=== PATIENT | male | born 1940 | race Caucasian/White ===

== ENCOUNTER 2017-04-02 12:24 | Observation (INO) | payer OTHER, MEDICARE ==
[2017-04-02 12:38] VITALS: BMI 27.3
[2017-04-02 14:17] LABS: BASO % 0.4 % (0-2.0); EOS % 4.5 % (0-4.5); HEMATOCRIT 42.2 % (35.4-49); HEMOGLOBIN 13.9 GM/dL (11.7-16.9); LYMPH % 23.6 % (8-40); MCH 30.7 pg (25.7-33.7); MEAN CELL VOLUME 92.9 fl (80-96); MEAN PLT VOLUME 9.5 fl (7.5-11.1); NEUT % 59.5 % (42.8-82.8); PLATELET COUNT 200 K/MM3 (134-434); RBC 4.54 M/mm3 (4.00-5.60); RDW 13.9 % (11.9-15.9)
[2017-04-02 14:35] LABS: INR 1.11 (0.82-1.09); PROTHROMBIN TIME (PATIENT) 12.5 SEC (9.98-11.88)
[2017-04-02 14:38] LABS: CHLORIDE 104 mmol/L (98-107); SODIUM 140 mmol/L (136-145)
[2017-04-02 14:43] LABS: ALBUMIN 3.5 g/dl (3.4-5.0); ANION GAP 8 (8-16); BLOOD UREA NITROGEN 16 mg/dL (7-18); CALCIUM 8.9 mg/dL (8.5-10.1); CO2 28 mmol/L (21-32); GLUCOSE,RANDOM 90 mg/dL (74-106); SGOT/AST 31 U/L (15-37); SGPT/ALT 39 U/L (12-78)
[2017-04-02 14:48] LABS: ALK PHOS 85 U/L (45-117); BILIRUBIN,TOTAL 0.5 mg/dL (0.2-1.0); CREATININE 0.9 mg/dL (0.7-1.3); N-TERMINAL BNP 47.59 pg/ml (5-125); TOT PROT 6.6 g/dl (6.4-8.2)
[2017-04-02 14:51] LABS: LIPASE 221 U/L (73-393)
[2017-04-02 14:52] LABS: MAGNESIUM 2.1 mg/dL (1.8-2.4)
--- NOTE | 2017-04-02 14:59 | PDOC ---
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 He reports that these symptoms started when he was doing some light exercising today. He describes his symptoms as intermittent in nature. He reports that his chest pain is a pressure like feeling, without radiation or modifying factors, present at rest at times. He describes his headache as a fullness sensation ranging from mild to moderate, without radiation or modifying factors. The patient denies shortness of breath and dizziness. Denies fever, chills, nausea, vomit, diarrhea and constipation. Allergies: None Past surgical history: Knee surgery (01/2017) Social history: No alcohol, tobacco or drug use reported Past History - Past Medical History Allergies/Adverse Reactions: Allergies Allergy/AdvReac Type Severity Reaction Status Date / Time No Known Allergies Allergy Verified 04/02/17 12:38 Home Medications: Ambulatory Orders Aspirin [ASA -] 81 mg PO DAILY 04/02/17 Fluoxetine HCl [Prozac -] 60 mg PO DAILY 04/02/17 Rosuvastatin [Crestor -] 0 mg PO HS 04/02/17 Cardiac Disorders: Yes (irregular heartbeat) COPD: No - Suicide/Smoking/Psychosocial Hx Smoking History: Never smoked Review of Systems - Review of Systems Comments:: 04/02/17 17:11 GENERAL/CONSTITUTIONAL: No fever or chills. No weakness. HEAD, EYES, EARS, NOSE AND THROAT: No change in vision. No ear pain or discharge. No sore throat.- CARDIOVASCULAR: (+) Chest pain. No shortness of breath RESPIRATORY: No cough, wheezing, or hemoptysis. GASTROINTESTINAL: No nausea, vomiting, diarrhea or constipation. GENITOURINARY: No dysuria, frequency, or change in urination. MUSCULOSKELETAL: No joint or muscle swelling or pain. No neck or back pain. SKIN: No rash NEUROLOGIC: (+) Headache. No vertigo, loss of consciousness, or change in strength/sensation. ENDOCRINE: No increased thirst. No abnormal weight change HEMATOLOGIC/LYMPHATIC: No anemia, easy bleeding, or history of blood clots. ALLERGIC/IMMUNOLOGIC: No hives or skin allergy. *Physical Exam - Vital Signs Last Vital Signs Temp Pulse Resp BP Pulse Ox 98.4 F 74 18 122/86 100 04/02/17 12:35 04/02/17 12:35 04/02/17 12:35 04/02/17 12:35 04/02/17 12:35 - Physical Exam Comments: 04/02/17 17:11 GENERAL: Awake, alert, and fully oriented, in no acute distress HEAD: No signs of trauma, normocephalic, atraumatic EYES: PERRLA, EOMI, sclera anicteric, conjunctiva clear ENT: Auricles normal inspection, hearing grossly normal, nares patent, oropharynx clear without exudates. Moist mucosa NECK: Normal ROM, supple, no lymphadenopathy, JVD, or masses LUNGS: No distress, speaks full sentences, clear to auscultation bilaterally HEART: Regular rate and rhythm, normal S1 and S2, no murmurs, rubs or gallops, peripheral pulses normal and equal bilaterally. ABDOMEN: Soft, nontender, normoactive bowel sounds. No guarding, no rebound. No masses EXTREMITIES : RLE calf non pitting edema. Normal range of motion, no edema. No clubbing or cyanosis. 2+ peripheral pulses x4 NEUROLOGICAL: Cranial nerves II through XII grossly intact. Normal speech, normal gait, no focal sensorimotor deficits SKIN: Warm, Dry, normal turgor, no rashes or lesions noted. B/l medial TKR scars clean/dry/intact Heart Score/ECG Review - History History: Highly suspicious - Electrocardiogram EKG: Non specific repolarization disturbance - Age Age: >/= 65 - Risk Factors Risk Factors Heart Score: Yes Hx Hypercholesterolemia Based on the list above the patient has:: 1-2 risk factors - Troponin Troponin: </= normal limit - Score Heart Score - Total: 6 #1 04/02/17 17:11 Twelve-lead EKG was performed and reviewed by me. A sinus rhythm, rate 70. Normal axis and intervals. No ST elevations or T-wave inversions. ED Treatment Course - LABORATORY CBC & Chemistry Diagram: 04/02/17 14:10 04/02/17 14:10 - ADDITIONAL ORDERS Additional order review: Laboratory Results 04/02/17 04/02/1718 14:10 14:10 14:10 Sodium 140 Cancelled Potassium 4.0 Cancelled Chloride 104 Cancelled Carbon Dioxide 28 Cancelled Anion Gap 8 Cancelled BUN 16 Cancelled Creatinine 0.9 Cancelled Creat Clearance w eGFR > 60 Cancelled Random Glucose 90 Cancelled Calcium 8.9 Cancelled Magnesium 2.1 Total Bilirubin 0.5 Cancelled AST 31 Cancelled ALT 39 Cancelled Alkaline Phosphatase 85 Cancelled Troponin I < 0.02 B-Natriuretic Peptide 47.59 Total Protein 6.6 Cancelled Albumin 3.5 Cancelled Lipase 221 04/02/17 14:10 RBC 4.54 MCV 92.9 MCHC 33.0 RDW 13.9 MPV 9.5 Neutrophils % 59.5 Lymphocytes % 23.6 Monocytes % 12.0 H Eosinophils % 4.5 Basophils % 0.4 - RADIOLOGY Radiology Studies Ordered: Category Date Time Status HEAD CT WITHOUT CONTRAST [CT] Stat CT Scan 04/02/17 13:54 Completed CHEST X-RAY PORTABLE* [RAD] Stat Radiology 04/02/17 13:54 Taken Medical Decision Making - Medical Decision Making 04/02/17 18:01 76-year-old male with a history of nonobstructive CAD, hyperlipidemia who presents to the emergency department with sensation of fullness in his chest and head. Vitals are unremarkable. Exam is unremarkable. EKG is nonischemic. Patient also with recent revision of his total knee replacement last month. Differential includes but is not limited to pulmonary embolism versus acute coronary syndrome versus musculoskeletal pain. Labs were remarkable for a negative troponin and a elevated d-dimer to 2500. As such a CTA has been ordered to evaluate for pulmonary embolism. A CT head was obtained given the had fullness which was negative for acute pathology. Chest x-ray is also negative. Once CTA chest has been done and resulted, patient can be admitted. Patient has been signed out to the evening attending Dr. Cali for further management and disposition. *DC/Admit/Observation/Transfer Diagnosis at time of Disposition: Chest pressure - Discharge Dispostion Condition at time of disposition: Stable - Referrals Referrals: ON STAFF,NOT [Primary Care Provider] - - Patient Instructions - Post Discharge Activity - Attestations Physician Attestion: 04/02/17 18:05 I, Dr. Tena Elder MD, attest that this document has been prepared under my direction and personally reviewed by me in its entirety. I further attest, that it accurately reflects all work, treatment, procedures and medical decision -making performed by me.
[2017-04-02 22:27] VITALS: TEMP 98.1
--- NOTE | 2017-04-02 23:56 | PDOC ---
*Physical Exam - Vital Signs Last Vital Signs Temp Pulse Resp BP Pulse Ox 98.1 F 66 16 131/71 96 04/02/17 22:26 04/02/17 22:26 04/02/17 22:26 04/02/17 22:26 04/02/17 22:26 ED Treatment Course - LABORATORY CBC & Chemistry Diagram: 04/02/17 14:10 04/02/17 14:10 - ADDITIONAL ORDERS Additional order review: Laboratory Results 04/02/17 04/02/17 04/02/17 14:10 14:10 14:10 PT with INR 12.50 H INR 1.11 PTT (Actin FS) D-Dimer 2478 H Sodium Potassium Chloride Carbon Dioxide Anion Gap BUN Creatinine Creat Clearance w eGFR Random Glucose Calcium Magnesium 2.1 Total Bilirubin AST ALT Alkaline Phosphatase Troponin I < 0.02 B-Natriuretic Peptide Total Protein Albumin Lipase 221 04/02/17 04/02/17 04/02/17 14:10 14:10 14:10 PT with INR INR PTT (Actin FS) 33.6 D-Dimer Sodium 140 Cancelled Potassium 4.0 Cancelled Chloride 104 Cancelled Carbon Dioxide 28 Cancelled Anion Gap 8 Cancelled BUN 16 Cancelled Creatinine 0.9 Cancelled Creat Clearance w eGFR > 60 Cancelled Random Glucose 90 Cancelled Calcium 8.9 Cancelled Magnesium Total Bilirubin 0.5 Cancelled AST 31 Cancelled ALT 39 Cancelled Alkaline Phosphatase 85 Cancelled Troponin I B-Natriuretic Peptide 47.59 Total Protein 6.6 Cancelled Albumin 3.5 Cancelled Lipase 04/02/17 14:10 RBC 4.54 MCV 92.9 MCHC 33.0 RDW 13.9 MPV 9.5 Neutrophils % 59.5 Lymphocytes % 23.6 Monocytes % 12.0 H Eosinophils % 4.5 Basophils % 0.4 Medical Decision Making - Medical Decision Making 04/02/17 23:55 History of the chest showed minimal scarring in the lungs. No evidence of PE or aortic dissection. No acute infiltrates, no pleural effusions and no pneumothorax *DC/Admit/Observation/Transfer Diagnosis at time of Disposition: Chest pressure - Discharge Dispostion Condition at time of disposition: Stable Admit: Yes - Referrals Referrals: ON STAFF,NOT [Primary Care Provider] - - Patient Instructions - Post Discharge Activity
--- NOTE | 2017-04-03 00:07 | PN ---
Teaching Attending Note Name of Resident: Madyson Canchola ATTENDING PHYSICIAN STATEMENT I saw and evaluated the patient. I reviewed the resident's note and discussed the case with the resident. I agree with the resident's findings and plan as documented. SUBJECTIVE: 76 M with pmhx. of HLD, Non-obstructive CAD, ?Irregular Heart Rythem, who presents with chest "fullness". States he was doing light excercise when he felt a head and chest fullness. Also states he was lifiting weights and had left chest soreness. States pain Alleviated when he came to ED. No chest pressure or tightness. No diaphoresis. OBJECTIVE: Physical: VS: Vital Signs Period Temp Pulse Resp BP Sys/Arnold Pulse Ox Last 24 Hr 98.1 F-98.4 F 66-80 14-18 122-144/71-88 96-100 GEN: NAD, Resting in bed, AA0X3 HEENT: NCAT, PERRL, throat without erythema or exudates CARD: RRR S1, S2 RESP: CTAB ABD: Bsx4, NTD to palpation EXT: L knee scar. R leg without erythema or edema CBCD WBC 5.0 K/mm3 (4.0-10.0) 04/02/17 14:10 RBC 4.54 M/mm3 (4.00-5.60) 04/02/17 14:10 Hgb 13.9 GM/dL (11.7-16.9) 04/02/17 14:10 Hct 42.2 % (35.4-49) 04/02/17 14:10 MCV 92.9 fl (80-96) 04/02/17 14:10 MCHC 33.0 g/dl (32.0-35.9) 04/02/17 14:10 RDW 13.9 % (11.9-15.9) 04/02/17 14:10 Plt Count 200 K/MM3 (134-434) 04/02/17 14:10 MPV 9.5 fl (7.5-11.1) 04/02/17 14:10 CMP Sodium 140 mmol/L (136-145) 04/02/17 14:10 Potassium 4.0 mmol/L (3.5-5.1) 04/02/17 14:10 Chloride 104 mmol/L (98-107) 04/02/17 14:10 Carbon Dioxide 28 mmol/L (21-32) 04/02/17 14:10 Anion Gap 8 (8-16) 04/02/17 14:10 BUN 16 mg/dL (7-18) 04/02/17 14:10 Creatinine 0.9 mg/dL (0.7-1.3) 04/02/17 14:10 Creat Clearance w eGFR > 60 (>60) 04/02/17 14:10 Random Glucose 90 mg/dL (74-106) 04/02/17 14:10 Calcium 8.9 mg/dL (8.5-10.1) 04/02/17 14:10 Total Bilirubin 0.5 mg/dL (0.2-1.0) 04/02/17 14:10 AST 31 U/L (15-37) 04/02/17 14:10 ALT 39 U/L (12-78) 04/02/17 14:10 Alkaline Phosphatase 85 U/L (45-117) 04/02/17 14:10 Total Protein 6.6 g/dl (6.4-8.2) 04/02/17 14:10 Albumin 3.5 g/dl (3.4-5.0) 04/02/17 14:10 CARDIAC ENZYMES Troponin I < 0.02 ng/ml (0.00-0.05) 04/02/17 14:10 EKG: NSR, NO ST-E changes CTA: Negative Home Medications Medication Instructions Recorded Aspirin [ASA -] 81 mg PO DAILY 04/02/17 Fluoxetine HCl [Prozac -] 60 mg PO DAILY 04/02/17 Rosuvastatin [Crestor -] 0 mg PO HS 04/02/17 ASSESSMENT AND PLAN: 76 M with pmhx. of HLD, Non-obstructive CAD, ?Irregular Heart Rythem, who presents with chest "fullness", being admitted for ACS rule out 1.) Chest Pain - RO ACS - HEART SCORE 5 - ECHO - Trend trop/ekg - ASA/Statin - 02- Cardio - Morphine/Nitro prn pain - Lipid Panel/A1C 2.) DVT Ppx - Low Risk - SCDS Place in Obs-Tele
--- NOTE | 2017-04-03 01:26 | HP ---
CHIEF COMPLAINT: chest "fullness" PCP: HISTORY OF PRESENT ILLNESS: 76 y/o M with PMH HLD, irregular heart beat (dx 10 yrs ago; at time, saw filter filler, was told had WNL ECHO and stress test), cath 20 yrs ago for non- obstructive CAD (<10% blockage), who presents to the ED with chest fullness and headache for the past 6-7 hours. As per patient, while he was lifting with 2 lb leg weights this AM, he developed sudden chest fullness that was constant in his mid-sternal area. The pressure was worse on exertion, and was a/w pulse irregularity and "skipped beats." Pt's chest pressure was not a/w SOB, chest pain, diaphoresis, or N/V. At this time, pt also endorsed head "fullness" and intermittent L sided chest pain that was reproducible with movement. 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, with manual labor Smoking:denies Alcohol: socially Drugs: denies Family History: father- [place] , brother- intestinal dz (unable to describe) Allergies No Known Allergies Allergy (Verified 04/02/17 12:38) HOME MEDICATIONS: Home Medications Medication Instructions Recorded Aspirin [ASA -] 81 mg PO DAILY 04/02/17 Fluoxetine HCl [Prozac -] 60 mg PO DAILY 04/02/17 Rosuvastatin [Crestor -] 5 mg PO HS 04/02/17 REVIEW OF SYSTEMS CONSTITUTIONAL: Absent: fever, chills, diaphoresis, generalized weakness, malaise, loss of appetite, weight change HEENT: Absent: rhinorrhea, nasal congestion, throat pain, throat swelling, difficulty swallowing, mouth swelling, ear pain, eye pain, visual changes CARDIOVASCULAR: +chest pressure, irregular heart rate Absent: chest pain, syncope, palpitations, lightheadedness, peripheral edema RESPIRATORY: Absent: cough, shortness of breath, dyspnea with exertion, orthopnea, wheezing, stridor, hemoptysis GASTROINTESTINAL: Absent: abdominal pain, abdominal distension, nausea, vomiting, diarrhea, constipation, melena, hematochezia GENITOURINARY: Absent: dysuria, frequency, urgency, hesitancy, hematuria, flank pain, genital pain MUSCULOSKELETAL: Absent: myalgia, arthralgia, joint swelling, back pain, neck pain SKIN: Absent: rash, itching, pallor HEMATOLOGIC/IMMUNOLOGIC: Absent: easy bleeding, easy bruising, lymphadenopathy, frequent infections ENDOCRINE: Absent: unexplained weight gain, unexplained weight loss, heat intolerance, cold intolerance NEUROLOGIC: Absent: headache, focal weakness or paresthesias, dizziness, unsteady gait, seizure, mental status changes, bladder or bowel incontinence PSYCHIATRIC: Absent: anxiety, depression, suicidal or homicidal ideation, hallucinations. PHYSICAL EXAMINATION Vital Signs 04/02/17 12:35 Temperature 98.4 F Pulse Rate 74 Pulse Rate [ Apical] Respiratory 18 Rate Blood Pressure 122/86 Blood Pressure [Left Arm] O2 Sat by Pulse 100 Oximetry (%) GENERAL: Pleasant. Resting comfortably in bed, awake, alert, and fully oriented , in no acute distress. HEAD: Normal with no signs of trauma. EYES: Pupils equal, round and reactive to light, extraocular movements intact, sclera anicteric, conjunctiva clear. EARS, NOSE, THROAT: Ears normal, nares patent, oropharynx clear without exudates. Moist mucous membranes. NECK: Normal range of motion, supple LUNGS: Breath sounds equal, clear to auscultation bilaterally. No wheezes, and no crackles. No accessory muscle use. HEART: Regular rate and rhythm, normal S1 and S2 without murmur, or rub. +gallop ABDOMEN: Soft, nontender, not distended, normoactive bowel sounds, no guarding, no rebound, no masses. LOWER EXTREMITIES: 2+ posterior tibial pulses, warm, well-perfused. No calf tenderness. No peripheral edema. NEUROLOGICAL: Cranial nerves II-XII intact. Laboratory Results 04/02/17 04/02/17 04/02/17 14:10 14:10 14:10 WBC 5.0 Hgb 13.9 Hct 42.2 Plt Count 200 D-Dimer 2478 H CXR: WNL Head CT: no intracranial pathology present CTA: WNL EKG: normal sinus rhythm, HR 70 ASSESSMENT/PLAN: 76 y/o M with PMH HLD, irregular heart beat (dx 10 yrs ago; at time, saw filter filler, was told had WNL ECHO and stress test), cath 20 yrs ago for non- obstructive CAD (<10% blockage), who presents to the ED with chest fullness and headache for the past 6-7 hours. Pt admitted to tele obs to r/o ACS. #Chest pressure R/o ACS -trend troponins x 3 (first one is negative) -F/u ECHO -F/u A1c, lipid panel -EKG as needed -Telemetry monitoring -Morphine, nitro for pain PRN -Continue aspirin 81mg, crestor 5mg PO qHS #Elevated d-dimer, r/o PE -D-dimer 2478, however most likely 2/2 recent knee surgery in January -CTA - WNL -Well's score : 0, low risk #HLD -Continue crestor 5mg PO qHS #PPX DVT: SCD's #F/E/N No need for fluids at this time Monitor electrolytes Cholesterol/fat controlled diet #Dispo Tele obs Visit type - Emergency Visit Emergency Visit: Yes Care time: The patient presented to the Emergency Department on the above date and was hospitalized for further evaluation of their emergent condition. - New Patient This patient is new to me today: Yes Date on this admission: 04/03/17 - Critical Care Critical Care patient: No
[2017-04-03 08:07] LABS: BASO % 0.6 % (0-2.0); HEMATOCRIT 41.7 % (35.4-49); HEMOGLOBIN 13.8 GM/dL (11.7-16.9); MCH 30.9 pg (25.7-33.7); MEAN CELL VOLUME 93.6 fl (80-96); MONO % 12.6 % (3.8-10.2); NEUT % 58.8 % (42.8-82.8); PLATELET COUNT 187 K/MM3 (134-434); RBC 4.45 M/mm3 (4.00-5.60); RDW 14.1 % (11.9-15.9); WHITE BLOOD COUNT 5.3 K/mm3 (4.0-10.0)
[2017-04-03 08:47] LABS: ANION GAP 7 (8-16); BLOOD UREA NITROGEN 13 mg/dL (7-18); CALCIUM 8.2 mg/dL (8.5-10.1); CHLORIDE 103 mmol/L (98-107); CHOLESTEROL 160 mg/dL (50-200); CO2 28 mmol/L (21-32); CREATININE 0.8 mg/dL (0.7-1.3); GLUCOSE,RANDOM 84 mg/dL (74-106); HDL CHOLESTEROL 70 mg/dL (40-60); LDL CHOLESTEROL (ONLY SJRH) 75 mg/dL (5-100); POTASSIUM 3.9 mmol/L (3.5-5.1); SODIUM 138 mmol/L (136-145); TRIGLYCERIDES 110 mg/dL (35-160)
[2017-04-03] MEDS ORDERED: ASPIRIN COATED 81 MG TABLET.EC PO SCH (10:00)
[2017-04-03] MEDS ORDERED: FLUoxetine HCL 20 MG CAPSULE (FP) PO SCH (10:00)
[2017-04-03] MEDS ORDERED: ASPIRIN 81 MG CHEWABLE TABLETS PO SCH (10:00)
--- NOTE | 2017-04-03 11:02 | CON.CARD ---
Consult Consult Specialty:: Cardiology Referred by:: Hospitalist Reason for Consultation:: Cardiac evaluation - History of Present Illness Chief Complaint: "skipped beats and fullness of his head" History of Present Illness: Patient is a 76 year old male with underlying history of hypercholesterolemia and anxiety who presents with fullness of his head and complaints of "skipped beats". He also has had intermittent left sided chest discomfort. He has had this chest discomfort in the past and was evaluated with echocardiography and nuclear stress testing. He also had cardiac catheterization one point when he was seen by a special education secretary affiliated with [facility]. Above testings were negative according to patient. He denies shortness of breath at this time. 3 sets of cardiac profile were negative and currently he remains asymptomatic. He denies paroxysmal nocturnal dyspnea or orthopnea. He denies fever or chills. He denies nausea, vomiting, diarrhea or abdominal pain. He denies dizziness. Cardiology consultation was called for further evaluation. - History Source History Provided By: Patient, Medical Record Limitations to Obtaining History: No Limitations - Past Medical History Cardio/Vascular: Yes: Hyperlipdemia Psych: Yes: Anxiety - Past Surgical History Past Surgical History: Yes: Joint Replacement - Alcohol/Substance Use Hx Alcohol Use: No History of Substance Use: reports: None - Smoking History Smoking history: Never smoked Have you smoked in the past 12 months: No Home Medications - Allergies Allergies/Adverse Reactions: Allergies Allergy/AdvReac Type Severity Reaction Status Date / Time No Known Allergies Allergy Verified 04/02/17 12:38 - Home Medications Home Medications: Ambulatory Orders Aspirin [ASA -] 81 mg PO DAILY 04/02/17 Fluoxetine HCl [Prozac -] 60 mg PO DAILY 04/02/17 Rosuvastatin [Crestor -] 0 mg PO HS 04/02/17 Family Disease History - Family Disease History Other Family History: History of CAD and OK Review of Systems - Review of Systems Constitutional: denies: Chills, Fever Eyes: denies: Blurred Vision Cardiovascular: reports: Chest Pain. denies: Palpitations, Shortness of Breath Respiratory: denies: Cough, Hemoptysis, Orthopnea, PND, SOB, SOB on Exertion Gastrointestinal: denies: Abdominal Pain, Constipation, Diarrhea, Melena, Nausea , Rectal Bleeding, Vomiting Neurological: reports: Headache. denies: Change in Speech, Dizziness, Numbness , Seizure, Syncope, Tremors, Unsteady Gait Vital Signs: Vital Signs Temperature 98.1 F 04/02/17 22:26 Pulse Rate 89 04/03/17 07:03 Respiratory Rate 16 04/03/17 07:03 Blood Pressure 156/83 04/03/17 07:03 O2 Sat by Pulse Oximetry (%) 95 04/03/17 07:03 Constitutional: Yes: Well Nourished Eyes: Yes: PERRL HENT: Yes: Atraumatic Neck: Yes: Supple Respiratory: Yes: CTA Bilaterally Gastrointestinal: Yes: Normal Bowel Sounds, Soft. No: Tenderness Cardiovascular: Yes: Regular Rate and Rhythm JVD: No Carotid Bruit: No PMI: Non-Displaced Heart Sounds: Yes: S1, S2. No: Gallop Murmur: No: Systolic Murmur, Diastolic Murmur Edema: Yes Edema: RLE: Trace - Other Data Labs, Other Data: CBC, BMP 04/03/17 07:42 04/03/17 07:42 INR, PTT INR 1.11 (0.82-1.09) 04/02/17 14:10 Troponin, BNP 04/02/17 04/02/17 04/03/17 14:10 14:10 02:09 Troponin I < 0.02 < 0.02 B-Natriuretic Peptide 47.59 04/03/17 07:42 Troponin I < 0.02 B-Natriuretic Peptide Laboratory Results - last 24 hr 04/02/17 04/02/17 04/02/17 14:10 14:10 14:10 WBC 5.0 RBC 4.54 Hgb 13.9 Hct 42.2 MCV 92.9 MCH 30.7 MCHC 33.0 RDW 13.9 Plt Count 200 MPV 9.5 Neutrophils % 59.5 Lymphocytes % 23.6 Monocytes % 12.0 H Eosinophils % 4.5 Basophils % 0.4 PT with INR INR PTT (Actin FS) 33.6 D-Dimer Sodium Cancelled Potassium Cancelled Chloride Cancelled Carbon Dioxide Cancelled Anion Gap Cancelled BUN Cancelled Creatinine Cancelled Creat Clearance w eGFR Cancelled Random Glucose Cancelled Hemoglobin A1c % Calcium Cancelled Magnesium Total Bilirubin Cancelled AST Cancelled ALT Cancelled Alkaline Phosphatase Cancelled Creatine Kinase Creatine Kinase Index CK-MB (CK-2) Troponin I B-Natriuretic Peptide Total Protein Cancelled Albumin Cancelled Triglycerides Cholesterol Total LDL Cholesterol HDL Cholesterol Lipase 04/02/17 04/02/17 04/02/17 14:10 14:10 14:10 WBC RBC Hgb Hct MCV MCH MCHC RDW Plt Count MPV Neutrophils % Lymphocytes % Monocytes % Eosinophils % Basophils % PT with INR 12.50 H INR 1.11 PTT (Actin FS) D-Dimer Sodium 140 Potassium 4.0 Chloride 104 Carbon Dioxide 28 Anion Gap 8 BUN 16 Creatinine 0.9 Creat Clearance w eGFR > 60 Random Glucose 90 Hemoglobin A1c % Calcium 8.9 Magnesium 2.1 Total Bilirubin 0.5 AST 31 ALT 39 Alkaline Phosphatase 85 Creatine Kinase Creatine Kinase Index CK-MB (CK-2) Troponin I < 0.02 B-Natriuretic Peptide 47.59 Total Protein 6.6 Albumin 3.5 Triglycerides Cholesterol Total LDL Cholesterol HDL Cholesterol Lipase 221 04/02/17 04/03/17 04/03/17 14:10 02:09 02:09 WBC RBC Hgb Hct MCV MCH MCHC RDW Plt Count MPV Neutrophils % Lymphocytes % Monocytes % Eosinophils % Basophils % PT with INR INR PTT (Actin FS) D-Dimer 2478 H Sodium Potassium Chloride Carbon Dioxide Anion Gap BUN Creatinine Creat Clearance w eGFR Random Glucose Hemoglobin A1c % 5.4 Calcium Magnesium Total Bilirubin AST ALT Alkaline Phosphatase Creatine Kinase 173 Creatine Kinase Index 1.0 CK-MB (CK-2) 1.801 Troponin I < 0.02 B-Natriuretic Peptide Total Protein Albumin Triglycerides Cholesterol Total LDL Cholesterol HDL Cholesterol Lipase 04/03/17 04/03/17 07:42 07:42 WBC 5.3 RBC 4.45 Hgb 13.8 Hct 41.7 MCV 93.6 MCH 30.9 MCHC 33.0 RDW 14.1 Plt Count 187 MPV 10.0 Neutrophils % 58.8 Lymphocytes % 23.0 Monocytes % 12.6 H Eosinophils % 5.0 H Basophils % 0.6 PT with INR INR PTT (Actin FS) D-Dimer Sodium 138 Potassium 3.9 Chloride 103 Carbon Dioxide 28 Anion Gap 7 L BUN 13 Creatinine 0.8 Creat Clearance w eGFR Random Glucose 84 Hemoglobin A1c % Calcium 8.2 L Magnesium Total Bilirubin AST ALT Alkaline Phosphatase Creatine Kinase Creatine Kinase Index CK-MB (CK-2) Troponin I < 0.02 B-Natriuretic Peptide Total Protein Albumin Triglycerides 110 Cholesterol 160 Total LDL Cholesterol 75 HDL Cholesterol 70 H Lipase Normal sinus rhythmw with no ST-T abnormalities Imaging - Results Chest X-ray: Report Reviewed (Unremarkable) Cat Scan: Report Reviewed (No PTE) Ultrasound: Pending (Vascular US) EKG: Report Reviewed Problem List - Problems (1) Atypical chest pain Code(s): R07.89 - OTHER CHEST PAIN (2) Hypercholesterolemia Code(s): E78.00 - PURE HYPERCHOLESTEROLEMIA, UNSPECIFIED (3) Anxiety Code(s): F41.9 - ANXIETY DISORDER, UNSPECIFIED (4) Headache Code(s): R51 - HEADACHE (5) Intermittent palpitations Code(s): R00.2 - PALPITATIONS Assessment/Plan 1. Headache, etiology undetermined, but with normal head CT 2. Suspect atrial +/- ventricular premature complexes 3. Atypical chest pain syndrome 4. Elevated D-Dimer - ruled out PTE, rule out DVT 5. Hypercholesterolemia 6. Hypertension 7. Anxiety PLAN: 1. Troponin negative 3 sets 2. Continue Crestor 3. Continue ASA 81 QD 4. Lower extremity Doppler to rule out DVT and if negative, patient may be discharged and followed as outpatient. Patient sees a special education secretary affiliated with [facility]. 5. If patient continues to have skipped beats or palpitations, he may be scheduled for Holter monitor +/- extended external monitoring. Further plans are to follow Discharge planning cardiac standpoint. Giovanni Greenwood MD
--- NOTE | 2017-04-03 13:07 | EKG ---
Test Reason : Blood Pressure : / mmHG Vent. Rate : 070 BPM Atrial Rate : 070 BPM P-R Int : 130 ms QRS Dur : 092 ms QT Int : 394 ms P-R-T Axes : 035 067 050 degrees QTc Int : 425 ms NORMAL SINUS RHYTHM NORMAL ECG NO PREVIOUS ECGS AVAILABLE Confirmed by FERNANDO BARRON MD ([id number]) on 04/03/2017 1:06:42 PM Referred By: Confirmed By:FERNANDO BARRON MD
[2017-04-03 17:14] VITALS: BP 130/72; PULSE 64
--- NOTE | 2017-04-03 17:42 | DS ---
Physical Exam: SUBJECTIVE: Patient seen and examined. Patient states he presented to the ED because of "chest pressure and fullness that went up to his face" that started yesterday morning when doing leg exercises. He stressed that it wasn't pain, just a "weird" feeling. He says the symptoms resolved overnight. He also mentions that he has a chronic left sided soreness that hes had for years. He says its muskuloskeletel. He mentions he routinely follows up with his temporary office assistant. He currently denies chest pain, nausea, vomiting, headache, dizziness, and SOB. OBJECTIVE: Vital Signs Period Temp Pulse Resp BP Sys/Arnold Pulse Ox Last 24 Hr 98.1 F-98.1 F 64-89 14-16 130-156/71-95 95-97 PHYSICAL EXAM GENERAL: Resting comfortably in bed, awake, alert, and fully oriented, in no acute distress. HEAD: Normal with no signs of trauma. EYES: Pupils equal, round and reactive to light, extraocular movements intact, sclera anicteric, conjunctiva clear. EARS, NOSE, THROAT: oropharynx clear without exudates. Moist mucous membranes. NECK: Normal range of motion, supple LUNGS: Breath sounds equal, clear to auscultation bilaterally. No wheezes, and no crackles. No accessory muscle use. HEART: Regular rate and rhythm, normal S1 and S2 without murmur, or rub. Pulses 2+ throughout b/l ABDOMEN: Soft, nontender, not distended, normoactive bowel sounds, no guarding, no rebound, no masses. LOWER EXTREMITIES: 2+ posterior tibial pulses, warm, well-perfused. No calf tenderness. No peripheral edema. NEUROLOGICAL: Cranial nerves II-XII intact. LABS Laboratory Results - last 24 hr 04/03/17 04/03/17 04/03/17 02:09 02:09 07:42 WBC 5.3 RBC 4.45 Hgb 13.8 Hct 41.7 MCV 93.6 MCH 30.9 MCHC 33.0 RDW 14.1 Plt Count 187 MPV 10.0 Neutrophils % 58.8 Lymphocytes % 23.0 Monocytes % 12.6 H Eosinophils % 5.0 H Basophils % 0.6 Sodium Potassium Chloride Carbon Dioxide Anion Gap BUN Creatinine Random Glucose Hemoglobin A1c % 5.4 Calcium Creatine Kinase 173 Creatine Kinase Index 1.0 CK-MB (CK-2) 1.801 Troponin I < 0.02 Triglycerides Cholesterol Total LDL Cholesterol HDL Cholesterol 04/03/17 07:42 WBC RBC Hgb Hct MCV MCH MCHC RDW Plt Count MPV Neutrophils % Lymphocytes % Monocytes % Eosinophils % Basophils % Sodium 138 Potassium 3.9 Chloride 103 Carbon Dioxide 28 Anion Gap 7 L BUN 13 Creatinine 0.8 Random Glucose 84 Hemoglobin A1c % Calcium 8.2 L Creatine Kinase Creatine Kinase Index CK-MB (CK-2) Troponin I < 0.02 Triglycerides 110 Cholesterol 160 Total LDL Cholesterol 75 HDL Cholesterol 70 H HOSPITAL COURSE: Date of Admission:04/03/17 76 y/o M with PMH HLD, irregular heart beat , cath 20 yrs ago (<10% blockage), who presents to the ED with chest fullness and headache for the past 6-7 hours. Pt admitted to tele obs to r/o ACS. Patient was troponin negative x 2. EKG, CXR , Head CT, CTA were all unremarkable. Lower extremity doppler was also negative , which ruled out DVT. Patient underwent echo and cardio was consulted. Echo noted, Cardio recommended discharge with outpatient follow up with temporary office assistant. Patient sees temporary office assistant at [facility]. Patient will be discharged with no change in home medications. He agreed to follow up wit his primary care physician in 1 week. Date of Discharge: 04/03/17 Minutes to complete discharge: 35 Discharge Summary Reason For Visit: SENSATION OF CHEST PRESSURE Current Active Problems Anxiety (Acute) Atypical chest pain (Acute) Chest pressure (Acute) Headache (Acute) Intermittent palpitations (Acute) Hypercholesterolemia (Chronic) Condition: Improved - Instructions Diet, Activity, Other Instructions: You were being observed because of chest pressure that you were experiencing. You were monitored. All work up came back negative. Follow up with your temporary office assistant. he may want to do further testing if you continue to experience symptoms. Follow up with your primary care physician in 1 week Continue all your current home medications. If you have worsening of symptoms please call your doctor or go to the nearest emergency room. Referrals: ON STAFF,NOT [Primary Care Provider] - Disposition: HOME - Home Medications Comprehensive Discharge Medication List: Ambulatory Orders Aspirin [ASA -] 81 mg PO DAILY 04/02/17 Fluoxetine HCl [Prozac -] 60 mg PO DAILY 04/02/17 Rosuvastatin [Crestor -] 5 mg PO HS #30 tablet 04/03/17 This patient is new to me today: Yes Date on this admission: 04/04/17 Emergency Visit: Yes ED Registration Date: 04/03/17 Care time: The patient presented to the Emergency Department on the above date and was hospitalized for further evaluation of their emergent condition. Critical Care patient: No - Discharge Referral Referred to [facility] Med P.C.: No
--- NOTE | 2017-04-03 18:19 | HOSP ---
Subjective - Review of Symptoms Subjective: pt assessed. no recurrent episodes of CP. states the pain started as he was doing his leg excercises. felt like a pressure starting mid chest and went to his head. was constant for several hours which prompted him to the ER. states he is unsure when it stopped but all suddenly stopped shortly after arrival to the ER. states he is very active at baseline however since recent knee surgery he has been less actively but has been keeping up with leg excercises. never experiences CP or SOB on exertion. denies CP now, SOB, fever, cills, N/V/C/D had stress test last year and reports as negative. cath 20 years ago and reports <10% disease dad had IN in his 60's. no family hx of sudden cardiac never a smoker Last Vital Signs Temp Pulse Resp BP Pulse Ox 98.1 F 64 16 130/72 96 04/03/17 12:39 04/03/17 17:14 04/03/17 17:14 04/03/17 17:14 04/03/17 17:14 General NAD CV S1 S2 RRR no murmur/rub/gallop no chest wall tenderness Lungs CTA B/L no wheezing/rales/rhonchi extremities no pedal edema, no calf tenderess 76yo M with PMH CAD and dyslipidemia presented to the ER with CP 1. Atypical CP- cardiac enzymes neg x3. will check echo. if negative can f/u with secretary specialist for further testing. cont asa/statin 2. PVC- multiple PVC on monitor. no symptoms. can f/u with secretary specialist for possible holter monitor 3. d/c home pending echo Physical Examination Vital Signs: Vital Signs Temperature 98.1 F 04/03/17 12:39 Pulse Rate 64 04/03/17 17:14 Respiratory Rate 16 04/03/17 17:14 Blood Pressure 130/72 04/03/17 17:14 O2 Sat by Pulse Oximetry (%) 96 04/03/17 17:14 Labs: CBC, BMP 04/03/17 07:42 04/03/17 07:42
[2017-04-03] MEDS ORDERED: ROSUVASTATIN CA 5 MG TABLET (FP) PO SCH (22:00)
--- NOTE | 2017-04-05 08:10 | EKG ---
Test Reason : Blood Pressure : / mmHG Vent. Rate : 061 BPM Atrial Rate : 061 BPM P-R Int : 136 ms QRS Dur : 102 ms QT Int : 428 ms P-R-T Axes : 019 062 043 degrees QTc Int : 430 ms NORMAL SINUS RHYTHM NORMAL ECG WHEN COMPARED WITH ECG OF 02-APR-2017 12:30, NO SIGNIFICANT CHANGE WAS FOUND Confirmed by SAM VALADEZ MD ([id number]) on 04/05/2017 8:10:22 AM Referred By: Confirmed By:SAM VALADEZ MD
== END 2017-04-03 17:27 | disposition home or self-care (01) ==
LOC: JER 12:24 → JERBED 04-03 00:16 → UNDOADMOB 04-03 01:06 → JERBED 04-03 01:06
PROVIDERS: ADMIT Internal Medicine; ATTEND Internal Medicine
DX: R07.89 Other chest pain (principal); R78.5 Finding of other psychotropic drug in blood; F41.9 Anxiety disorder, unspecified; R51 Headache; R00.2 Palpitations; Z79.82 Long term (current) use of aspirin
CPT/HCPCS: 36415; 70450-TC; 71045-TC; 71275-TC; 80048; 80053; 80061; 82550; 82553; 83036; 83690; 83721; 83735; 83880; 84484; 85025; 85379; 85610; 85730; 93005; 93010; 93306-TC; 93970-TC; 99285-25; G0378